=== PATIENT | female | born 1985 | race African-American/Black ===

== ENCOUNTER 2021-06-18 18:12 | Inpatient (IN) | payer MEDICAID, OTHER ==
[~2021-06-18] VITALS: Ht 167.6 cm; Wt 99.8 kg
[2021-06-18] MEDS ORDERED: AZITHROMYCIN 500 MG in DEXT 5% WATER 250 ML IV ONE (19:00)
[2021-06-18] MEDS ORDERED: CEFTRIAXONE 1 G PREMIX 50 ML IV ONE (19:00)
[2021-06-18] MEDS ORDERED: DEXAMETHASONE 10 MG/ML VIAL IV ONE (19:00)
[2021-06-18] MEDS ORDERED: SODIUM CHLORIDE 0.9% 1,000 ML IV ONE (19:00)
[2021-06-18 19:16] LABS: CHLORIDE 109 mEq/L (98-107)
[2021-06-18 19:20] LABS: BASOPHILS % 0.2 % (0.0-2.0); HEMATOCRIT. 46.6 % (36.0-48.0); HEMOGLOBIN. 15.6 g/dL (12.0-16.0); LYMPHOCYTES % 20.6 % (20.0-50.0); MEAN CORPUSCULAR HEMOGLOBIN 28.1 pg (28.0-32.0); MEAN PLATELET VOLUME 9.6 fl (7.4-10.4); MONOCYTES % 6.3 % (2.0-8.0); NEUTROPHILS % 72.9 % (40.0-76.0); PLATELET 253 x1000/uL (130-400); RED BLOOD CELL COUNT 5.54 mill/uL (4.2-5.4); RED CELL DISTRIBUTION WIDTH 14.1 % (11.6-14.6)
[2021-06-18 19:24] LABS: CREATINE KINASE 96 IU/L (26-192)
[2021-06-18 19:30] LABS: HCG SCREEN NEGATIVE
[2021-06-18 19:32] LABS: D-DIMER 0.69 mg/L FEU (<0.50); INR 0.9
[2021-06-18] MEDS ORDERED: ACETAMINOPHEN 325MG TABLET PO ONE (20:45)
[2021-06-18 21:14] LABS: BG BASE EXCESS -0.6 mmol/L (-2.0-2.0); BG CARBOXYHEMOGLOBIN 0.4 % (0.5-1.5); BG FRACTION INSPIRED OXYGEN 28; BG HCO3 ACT 22.4 mmol/L (22.0-26.0); BG METHEMOGLOBIN 0.3 % (0.0-1.5); BG OXYHEMOGLOBIN 94.3 % (94.0-97.0); BG PCO2 32.3 mmHg (35.0-45.0); BG PH 7.458 (7.350-7.450); BG PO2 74.5 mmHg (75.0-100.0); BG SAMPLE SITE LEFT RADIAL; BG TOTAL HEMOGLOBIN 14.4 g/dL (12.0-18.0); BG VENT MODE NASAL CANNULA
[2021-06-18] MEDS ORDERED: GUAIFENESIN 200MG/10ML SUGAR FREE UDC PO PRN (22:00)
[2021-06-18] MEDS ORDERED: CLONIDINE 0.1MG TABLET PO PRN (22:00)
[2021-06-18] MEDS ORDERED: ONDANSETRON HCL 4MG/2ML INJ IV PRN (22:00)
[2021-06-18] MEDS ORDERED: LORAZEPAM 0.5MG TABLET PO PRN (22:00)
[2021-06-18] MEDS ORDERED: ACETAMINOPHEN 325MG TABLET PO PRN (22:00)
[2021-06-18] MEDS ORDERED: KETOROLAC 15MG/ML VIAL IV PRN (22:00)
[2021-06-18] MEDS ORDERED: NITROGLYCERIN 0.4MG TABLET SL SL PRN (22:00)
[2021-06-18] MEDS ORDERED: DOCUSATE SODIUM 100MG CAPSULE PO PRN (22:00)
[2021-06-18] MEDS ORDERED: MAGNESIUM/ALUMINUM HYDROXIDE/SIMETHICONE 30ML UDC PO PRN (22:00)
[2021-06-18] MEDS ORDERED: ZOLPIDEM TARTRATE 5MG TABLET PO PRN (22:00)
[2021-06-18] MEDS: GUAIFENESIN/DM 600MG/30MG ER TAB 12HR PO SCH (22:28)
[2021-06-18 23:39] LABS: T4 FREE 1.12 ng/dL (0.76-1.46)
[2021-06-18 23:41] LABS: CREATINE KINASE 74 IU/L (26-192)
[2021-06-18 23:42] LABS: CREATINE KINASE MB FRACTION < 1.0 ng/mL (0.5-3.6)
[2021-06-18 23:51] LABS: FOLIC ACID (FOLATE) SERUM 12.6 ng/mL (>5.38)
[2021-06-19] MEDS: ALBUTEROL 6.7GM HFA INHALER ORI SCH ×4 (04:10→15:54)
[2021-06-19 06:07] LABS: BASOPHILS % 0.3 % (0.0-2.0); HEMATOCRIT. 42.5 % (36.0-48.0); HEMOGLOBIN. 13.9 g/dL (12.0-16.0); LYMPHOCYTES % 13.3 % (20.0-50.0); MEAN CORPUSCULAR HEMOGLOBIN 27.7 pg (28.0-32.0); MEAN CORPUSCULAR VOLUME 84.6 fL (81.0-99.0); MEAN PLATELET VOLUME 8.9 fl (7.4-10.4); MONOCYTES % 5.5 % (2.0-8.0); NEUTROPHILS % 80.9 % (40.0-76.0); PLATELET 214 x1000/uL (130-400); RED BLOOD CELL COUNT 5.03 mill/uL (4.2-5.4); RED CELL DISTRIBUTION WIDTH 14.2 % (11.6-14.6)
[2021-06-19 06:16] LABS: CHLORIDE 109 mEq/L (98-107)
[2021-06-19 06:22] LABS: PHOSPHORUS 3.7 mg/dL (2.5-4.9)
[2021-06-19 06:23] LABS: CREATINE KINASE 71 IU/L (26-192)
[2021-06-19 06:27] LABS: CREATINE KINASE MB FRACTION < 1.0 ng/mL (0.5-3.6)
[2021-06-19] MEDS ORDERED: ENOXAPARIN 40MG/0.4ML SYR SUBCUT SCH (09:00)
[2021-06-19] MEDS: ZINC SULFATE 220 MG ( 50 ) CAPSULE PO SCH (09:38)
[2021-06-19] MEDS: CHOLECALCIFEROL (D3) 1000 UNIT TABLET PO SCH (09:39)
[2021-06-19] MEDS: GUAIFENESIN/DM 600MG/30MG ER TAB 12HR PO SCH ×2 (09:39→21:26)
[2021-06-19] MEDS: ASCORBIC ACID 500 MG TABLET PO SCH ×2 (09:39→21:26)
[2021-06-19] MEDS: FAMOTIDINE 20MG TABLET PO SCH ×2 (09:40→21:26)
[2021-06-19] MEDS: DEXAMETHASONE 10 MG/ML VIAL IV SCH (09:40)
[2021-06-19 10:08] VITALS: BP 113/67
[2021-06-19 12:00] VITALS: BP 116/78
[2021-06-19] MEDS: CEFTRIAXONE 1,000 MG in DEXTROSE 5% WATER 50 ML IV SCH (12:53)
[2021-06-19] MEDS: AZITHROMYCIN 500 MG in DEXT 5% WATER 250 ML IV SCH (13:01)
[2021-06-19 16:00] VITALS: BP 112/68
[2021-06-19] MEDS ORDERED: CEFTRIAXONE 1,000 MG in DEXTROSE 5% WATER 50 ML IV SCH (19:00)
[2021-06-19 20:00] VITALS: BP 99/62
[2021-06-19] MEDS ORDERED: AZITHROMYCIN 500 MG in DEXT 5% WATER 250 ML IV SCH (20:00)
[2021-06-19] MEDS: ENOXAPARIN 30MG/0.3ML SYR SUBCUT SCH (21:27)
[2021-06-19] MEDS: ALBUTEROL 6.7GM HFA INHALER ORI PRN (21:28)
[2021-06-20] VITALS: BP 106/62
[2021-06-20 04:00] VITALS: BP 104/64
[2021-06-20 08:00] VITALS: BP 124/75
[2021-06-20] MEDS: GUAIFENESIN/DM 600MG/30MG ER TAB 12HR PO SCH ×2 (08:43→21:56)
[2021-06-20] MEDS: ZINC SULFATE 220 MG ( 50 ) CAPSULE PO SCH (08:43)
[2021-06-20] MEDS: DEXAMETHASONE 10 MG/ML VIAL IV SCH (08:43)
[2021-06-20] MEDS: ASCORBIC ACID 500 MG TABLET PO SCH ×2 (08:44→21:56)
[2021-06-20] MEDS: ACETAMINOPHEN 325MG TABLET PO PRN (08:44)
[2021-06-20] MEDS: FAMOTIDINE 20MG TABLET PO SCH ×2 (08:44→21:57)
[2021-06-20] MEDS: ENOXAPARIN 30MG/0.3ML SYR SUBCUT SCH ×2 (08:45→21:56)
[2021-06-20] MEDS: ALBUTEROL 6.7GM HFA INHALER ORI PRN (09:25)
[2021-06-20] MEDS: CHOLECALCIFEROL (D3) 1000 UNIT TABLET PO SCH (09:26)
[2021-06-20 12:00] VITALS: BP 118/86
[2021-06-20] MEDS ORDERED: POLYVINYL ALCOHOL OPHTH DROPS 15ML BOTHEYE PRN (12:00)
[2021-06-20] MEDS: CEFTRIAXONE 1,000 MG in DEXTROSE 5% WATER 50 ML IV SCH (12:12)
[2021-06-20] MEDS: AZITHROMYCIN 500 MG in DEXT 5% WATER 250 ML IV SCH (14:45)
[2021-06-20] MEDS: ALBUTEROL 6.7GM HFA INHALER ORI SCH ×2 (15:53→21:57)
[2021-06-20 16:00] VITALS: BP 128/79
[2021-06-20 20:00] VITALS: BP 120/75
[2021-06-21] VITALS: BP 122/78
[2021-06-21] MEDS: ALBUTEROL 6.7GM HFA INHALER ORI SCH ×4 (03:29→21:17)
[2021-06-21 04:00] VITALS: BP 123/77
[2021-06-21 08:00] VITALS: BP 134/88
[2021-06-21] MEDS: GUAIFENESIN/DM 600MG/30MG ER TAB 12HR PO SCH ×2 (08:17→21:16)
[2021-06-21] MEDS: ZINC SULFATE 220 MG ( 50 ) CAPSULE PO SCH (08:17)
[2021-06-21] MEDS: CHOLECALCIFEROL (D3) 1000 UNIT TABLET PO SCH (08:18)
[2021-06-21] MEDS: DEXAMETHASONE 10 MG/ML VIAL IV SCH (08:18)
[2021-06-21] MEDS: FAMOTIDINE 20MG TABLET PO SCH ×2 (08:18→21:16)
[2021-06-21] MEDS: ENOXAPARIN 30MG/0.3ML SYR SUBCUT SCH ×2 (08:18→21:17)
[2021-06-21] MEDS: ASCORBIC ACID 500 MG TABLET PO SCH ×3 (08:18→21:16)
[2021-06-21] MEDS: ACETAMINOPHEN 325MG TABLET PO PRN ×2 (10:13→16:02)
[2021-06-21 12:00] VITALS: BP 134/76
[2021-06-21] MEDS: CEFTRIAXONE 1,000 MG in DEXTROSE 5% WATER 50 ML IV SCH (12:38)
[2021-06-21] MEDS: AZITHROMYCIN 500 MG in DEXT 5% WATER 250 ML IV SCH (14:13)
[2021-06-21 16:00] VITALS: BP 138/90
[2021-06-21] MEDS ORDERED: ERGOCALCIFEROL 50000UNITS CAPSULE PO SCH (18:00)
[2021-06-21 20:00] VITALS: BP 122/79
[2021-06-22] VITALS: BP 137/93
[2021-06-22 04:00] VITALS: BP 131/82
[2021-06-22] MEDS: ALBUTEROL 6.7GM HFA INHALER ORI SCH ×4 (04:16→21:56)
[2021-06-22 08:00] VITALS: BP 122/78
[2021-06-22] MEDS: ASCORBIC ACID 500 MG TABLET PO SCH ×4 (09:11→21:56)
[2021-06-22] MEDS: GUAIFENESIN/DM 600MG/30MG ER TAB 12HR PO SCH ×2 (09:11→21:56)
[2021-06-22] MEDS: ENOXAPARIN 30MG/0.3ML SYR SUBCUT SCH ×2 (09:12→21:56)
[2021-06-22] MEDS: CHOLECALCIFEROL (D3) 1000 UNIT TABLET PO SCH (09:12)
[2021-06-22] MEDS: DEXAMETHASONE 10 MG/ML VIAL IV SCH (09:12)
[2021-06-22] MEDS: ZINC SULFATE 220 MG ( 50 ) CAPSULE PO SCH (09:12)
[2021-06-22] MEDS: FAMOTIDINE 20MG TABLET PO SCH ×2 (09:12→21:56)
[2021-06-22 10:34] LABS: BG BASE EXCESS 1.2 mmol/L (-2.0-2.0); BG CARBOXYHEMOGLOBIN 0.1 % (0.5-1.5); BG DEOXYHEMOGLOBIN 14.5 % (0.0-5.0); BG FRACTION INSPIRED OXYGEN 44; BG HCO3 ACT 23.6 mmol/L (22.0-26.0); BG METHEMOGLOBIN 0.3 % (0.0-1.5); BG OXYGEN SATURATION 85.4 % (92.0-98.5); BG OXYHEMOGLOBIN 85.1 % (94.0-97.0); BG PH 7.499 (7.350-7.450); BG SAMPLE SITE RIGHT RADIAL; BG TOTAL HEMOGLOBIN 13.7 g/dL (12.0-18.0); BG VENT MODE NASAL CANNULA
[2021-06-22 12:00] VITALS: BP 130/87
[2021-06-22] MEDS: AZITHROMYCIN 500 MG in DEXT 5% WATER 250 ML IV SCH (13:51)
[2021-06-22] MEDS: CEFTRIAXONE 1,000 MG in DEXTROSE 5% WATER 50 ML IV SCH (13:51)
[2021-06-22 16:00] VITALS: BP 121/83
[2021-06-22] MEDS: ACETAMINOPHEN 325MG TABLET PO PRN (16:39)
[2021-06-22 20:00] VITALS: BP 129/79
[2021-06-23] VITALS: BP 114/74
[2021-06-23] MEDS: ALBUTEROL 6.7GM HFA INHALER ORI SCH ×4 (03:53→21:24)
[2021-06-23 04:00] VITALS: BP 119/57
[2021-06-23 08:00] VITALS: BP 138/87
[2021-06-23] MEDS: DEXAMETHASONE 10 MG/ML VIAL IV SCH (09:08)
[2021-06-23] MEDS: ASCORBIC ACID 500 MG TABLET PO SCH ×2 (09:08→21:23)
[2021-06-23] MEDS: CHOLECALCIFEROL (D3) 1000 UNIT TABLET PO SCH (09:08)
[2021-06-23] MEDS: ZINC SULFATE 220 MG ( 50 ) CAPSULE PO SCH (09:09)
[2021-06-23] MEDS: GUAIFENESIN/DM 600MG/30MG ER TAB 12HR PO SCH ×2 (09:09→21:23)
[2021-06-23] MEDS: ENOXAPARIN 30MG/0.3ML SYR SUBCUT SCH ×2 (09:10→21:23)
[2021-06-23] MEDS: FAMOTIDINE 20MG TABLET PO SCH ×2 (09:10→21:23)
[2021-06-23 12:00] VITALS: BP 133/86
[2021-06-23] MEDS: CEFTRIAXONE 1,000 MG in DEXTROSE 5% WATER 50 ML IV SCH (12:06)
[2021-06-23 16:00] VITALS: BP 143/84
[2021-06-23 19:33] LABS: BASOPHILS % 0.2 % (0.0-2.0); HEMATOCRIT. 42.5 % (36.0-48.0); HEMOGLOBIN. 13.8 g/dL (12.0-16.0); LYMPHOCYTES % 11.6 % (20.0-50.0); MEAN CORPUSCULAR HEMOGLOBIN 27.8 pg (28.0-32.0); MEAN CORPUSCULAR VOLUME 85.4 fL (81.0-99.0); MONOCYTES % 8.4 % (2.0-8.0); NEUTROPHILS % 79.8 % (40.0-76.0); PLATELET 418 x1000/uL (130-400); RED BLOOD CELL COUNT 4.97 mill/uL (4.2-5.4); RED CELL DISTRIBUTION WIDTH 13.8 % (11.6-14.6)
[2021-06-23 20:00] VITALS: BP 118/78
[2021-06-24] VITALS: BP 127/81
[2021-06-24] MEDS: ALBUTEROL 6.7GM HFA INHALER ORI SCH ×4 (02:22→20:33)
[2021-06-24 04:00] VITALS: BP_SYST 128; BP_SYST 132; BP_DIAS 75; BP_DIAS 77
[2021-06-24 06:14] LABS: BASOPHILS % 0.2 % (0.0-2.0); HEMOGLOBIN. 14.2 g/dL (12.0-16.0); LYMPHOCYTES % 15.3 % (20.0-50.0); MEAN CORPUSCULAR HEMOGLOBIN 27.9 pg (28.0-32.0); MEAN CORPUSCULAR VOLUME 84.9 fL (81.0-99.0); MONOCYTES % 11.5 % (2.0-8.0); PLATELET 406 x1000/uL (130-400); RED BLOOD CELL COUNT 5.07 mill/uL (4.2-5.4); RED CELL DISTRIBUTION WIDTH 13.5 % (11.6-14.6)
[2021-06-24 08:00] VITALS: BP 129/72
[2021-06-24] MEDS: CHOLECALCIFEROL (D3) 1000 UNIT TABLET PO SCH (09:00)
[2021-06-24] MEDS: ENOXAPARIN 30MG/0.3ML SYR SUBCUT SCH ×2 (10:06→20:34)
[2021-06-24] MEDS: DEXAMETHASONE 10 MG/ML VIAL IV SCH (10:06)
[2021-06-24] MEDS: ASCORBIC ACID 500 MG TABLET PO SCH ×2 (10:07→20:33)
[2021-06-24] MEDS: FAMOTIDINE 20MG TABLET PO SCH ×2 (10:07→20:33)
[2021-06-24] MEDS: ZINC SULFATE 220 MG ( 50 ) CAPSULE PO SCH (10:07)
[2021-06-24] MEDS: GUAIFENESIN/DM 600MG/30MG ER TAB 12HR PO SCH ×2 (10:07→20:33)
[2021-06-24] MEDS: ALBUTEROL 6.7GM HFA INHALER ORI PRN (10:07)
[2021-06-24 12:00] VITALS: BP 130/74
[2021-06-24 15:43] VITALS: BP 116/72
[2021-06-24 20:00] VITALS: BP 122/76
[2021-06-25] VITALS: BP 132/86
[2021-06-25 04:00] VITALS: BP 136/94
[2021-06-25] MEDS: ALBUTEROL 6.7GM HFA INHALER ORI SCH ×3 (04:14→20:40)
[2021-06-25 07:07] LABS: BASOPHILS % 0.2 % (0.0-2.0); HEMATOCRIT. 45.3 % (36.0-48.0); LYMPHOCYTES % 11.5 % (20.0-50.0); MEAN CORPUSCULAR VOLUME 84.8 fL (81.0-99.0); MEAN PLATELET VOLUME 8.4 fl (7.4-10.4); MONOCYTES % 11.5 % (2.0-8.0); NEUTROPHILS % 76.8 % (40.0-76.0); PLATELET 517 x1000/uL (130-400); RED BLOOD CELL COUNT 5.35 mill/uL (4.2-5.4); RED CELL DISTRIBUTION WIDTH 13.8 % (11.6-14.6)
[2021-06-25 08:00] VITALS: BP 125/83
[2021-06-25] MEDS: DEXAMETHASONE 10 MG/ML VIAL IV SCH (08:35)
[2021-06-25] MEDS: FAMOTIDINE 20MG TABLET PO SCH ×2 (08:35→20:39)
[2021-06-25] MEDS: ZINC SULFATE 220 MG ( 50 ) CAPSULE PO SCH (08:35)
[2021-06-25] MEDS: ASCORBIC ACID 500 MG TABLET PO SCH ×2 (08:35→20:40)
[2021-06-25] MEDS: ENOXAPARIN 30MG/0.3ML SYR SUBCUT SCH ×2 (08:35→20:39)
[2021-06-25] MEDS: GUAIFENESIN/DM 600MG/30MG ER TAB 12HR PO SCH ×2 (08:35→20:39)
[2021-06-25] MEDS: CHOLECALCIFEROL (D3) 1000 UNIT TABLET PO SCH (08:35)
[2021-06-25 12:00] VITALS: BP 119/81
[2021-06-25 16:00] VITALS: BP 139/84
[2021-06-25 19:22] VITALS: BP 139/84
== END 2021-06-25 23:00 | disposition short-term general hospital (02) | DRG 871 ==
LOC: ER 18:12 → EDBEDREQTM 20:52 → EDBEDREQ 20:52 → MICUSO 21:33 → EDBEDREQ 21:35 → 7WST 06-19 07:54
PROVIDERS: ADMIT Internal Medicine; ATTEND Internal Medicine
DX: A41.89 Other specified sepsis (principal); E43 Unspecified severe protein-calorie malnutrition; J12.82 Pneumonia due to coronavirus disease 2019; J96.01 Acute respiratory failure with hypoxia; U07.1 COVID-19; N17.0 Acute kidney failure with tubular necrosis; E66.01 Morbid (severe) obesity due to excess calories; E83.51 Hypocalcemia; R65.20 Severe sepsis without septic shock; Z78.9 Other specified health status; R74.01 Elevation of levels of liver transaminase levels; Z68.35 Body mass index [BMI] 35.0-35.9, adult
CPT/HCPCS: 36415; 36600; 71045; 80053; 80061; 82375; 82550; 82553; 82607; 82728; 82746; 82805; 83036; 83540; 83550; 83605; 83615; 83735; 83880; 84100; 84145; 84439; 84443; 84484; 84703; 85025; 85379; 85384; 86140; 93005; 93970; 94640; 99291; J0456; J0696; J1100; J1650; J1885; J7030; J7060; U0003; U0005